=== PATIENT | male | born 1980 | race Caucasian/White ===

== ENCOUNTER 2020-05-22 21:13 | Emergency (ER) | payer MEDICAID, SELFPAY ==
[2020-05-22 21:49] VITALS: BP 141/86; PULSE 100; RESP 16; TEMP 37.1; BMI 44.6
[2020-05-22 22:00] VITALS: BP 113/72; PULSE 82; RESP 17; TEMP 37; O2SAT 98
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
--- NOTE | 2020-05-22 23:19 | PC.NURSE ---
md at bedside after pt refusing to change. pt now asking to leave, insists that he does not want to harm himself. md gave pt option to stay and speak with [facility], or discharge and call crisis in morning. pt decided he wants to leave.
== END 2020-05-23 | disposition home or self-care (01) ==
PROVIDERS: Emergency Provider Emergency Medicine; PCP Internal Medicine
DX: F41.9 Anxiety disorder, unspecified (principal)
CPT/HCPCS: 99283; 99284